=== PATIENT | female | born 1945 | race Caucasian/White ===

== ENCOUNTER 2021-03-11 13:05 | Emergency (ER) | payer MEDICARE, BC ==
[~2021-03-11] VITALS: Ht 162.6 cm; Wt 70.3 kg
--- NOTE | 2021-03-11 13:27 | NUR ---
DR DESAI AT THE BEDSIDE
--- NOTE | 2021-03-11 13:30 | NUR ---
BIBA RA99 GLF-Pain on Left Leg. The pain level is 8/10. No deformity noted. Will continue to monitor the patient.
--- NOTE | 2021-03-11 13:49 | NUR ---
x-ray tech at the bedside
--- NOTE | 2021-03-11 14:15 | NUR ---
CALLED [facility] [phone] THEY ARE AT [facility] AND WILL HAVE NO BEDS AVAILABLE IN THE FORSEEABLE FUTURE. [facility] HAVE 960 BEDS CAPACITY IS 885.
--- NOTE | 2021-03-11 14:32 | NUR ---
CALLED DR. MARIE [phone] WILL TEXT TO CALL US BACK.
--- NOTE | 2021-03-11 14:35 | NUR ---
x-ray tech at the bedside for chest x-ray
--- NOTE | 2021-03-11 14:39 | NUR ---
AT THE BEDSIDE
--- NOTE | 2021-03-11 14:59 | NUR ---
CALLED DR. LIDIA SCHMIDT [phone] SPOKE WITH HAIDER SCHMIDT IS SEEING PATIENTS PRATIBHA.
[2021-03-11 15:54] LABS: CALCIUM, SERUM 8.9 mg/dL (8.5-10.1); CREATININE 1.1 mg/dL (0.6-1.3); POTASSIUM 3.6 mmol/L (3.5-5.1)
--- NOTE | 2021-03-11 16:00 | NUR ---
Per lab unable to do CBC due to blood got clotted. The patient is made aware/explained that there is need for another blood draw (for CBC), however, the patient refused. The patient educated, given risks and benefits, however, the patient refused. Addendum: 03/11/21 at [address] Godwin made aware
--- NOTE | 2021-03-11 16:43 | NUR ---
CALLED [facility] [phone] EZ FOR PT GOING TO [facility] IN [place] UNDER [address] GILLIAN SULLIVAN FAXED CLINICALS TO [phone]
--- NOTE | 2021-03-11 17:57 | NUR ---
[place] ([facility]) [phone] phone #[phone]
--- NOTE | 2021-03-11 19:12 | NUR ---
RECEIVED A CALL FROM YESENIA FROM [facility] THAT PT IS NOT ACCEPTED. CASE DECLINED.
--- NOTE | 2021-03-11 19:14 | NUR ---
REPORT GIVEN TO NURSE LOVE FOR ABAD
--- NOTE | 2021-03-11 19:30 | NUR ---
PT C/O HEADACHE, DR PEREYRA NOTIFIED, RECEIVED VERBAL ORDER FOR TYLENOL 1000MG.
[2021-03-11] MEDS ORDERED: ACETAMINOPHEN ES 500 MG TABLET ONE (19:35)
--- NOTE | 2021-03-11 19:46 | NUR ---
CALLED [facility] TRANSFER CENTER NO BEDS AVAILABLE AT THIS TIME PER SURESH [phone]
[2021-03-11] MEDS ORDERED: ACETAMINOPHEN ES 500 MG TABLET PO ONE (20:00)
--- NOTE | 2021-03-11 20:49 | NUR ---
JIA ([facility]) - [phone] - CELL
--- NOTE | 2021-03-11 21:47 | NUR ---
Gallito schumacher in [facility] - 03/11/21 at 2148 by ARIANA spoke to minet from [facility], was informed there are no beds overnight until karla
--- NOTE | 2021-03-11 21:48 | NUR ---
SPOKE TO JAVON FROM [facility], WAS INFORMED THEY HAD NO BEDS AVAILABLE FOR TRANSFER FOR TONIGHT.
--- NOTE | 2021-03-11 21:55 | NUR ---
JAVON FROM [facility] ADMITTING NOTIFIED NOT TO ADMIT PT TO [facility]; AWAITING BED TO [facility]. CHARGE NURSE AWARE
--- NOTE | 2021-03-11 22:15 | NUR ---
DR BUSH AT BEDSIDE, ADVISED PT HE SPOKE WITH MD FROM [facility]: BED IS AVAILABLE AND WILL TAKE PATIENT TONIGHT. ETA UNKNOWN.
--- NOTE | 2021-03-11 22:16 | NUR ---
COVID ANTIGEN SWAB COLLECTED AND SENT TO LAB
--- NOTE | 2021-03-11 22:30 | NUR ---
PT REFUSED BLOOD DRAW ON THIRD ATTEMPT. EXPLAINED IMPORTANCE OF DIAGNOSTIC LABS. PT STILL REFUSED. MADE AWARE
--- NOTE | 2021-03-11 22:31 | NUR ---
[facility] ETA 40-45 MIN FOR TRANSPORT
--- NOTE | 2021-03-11 23:03 | NUR ---
REPORT GIVEN TO FERN AT [facility] AT [phone]
--- NOTE | 2021-03-11 23:05 | NUR ---
PT TRANSFERRED TO [facility] IN A GURNEY/AMBULANCE ACCOMPANIED BY 2 EMT, IN STABLE CONDITION.
[2021-03-12 00:43] VITALS: BP 128/78
== END 2021-03-11 23:05 | disposition short-term general hospital (02) ==
LOC: ER 13:08
DX: S72.002A Fracture of unspecified part of neck of left femur, initial encounter for closed fracture (principal); W01.0XXA Fall on same level from slipping, tripping and stumbling without subsequent striking against object, initial encounter; Y92.099 Unspecified place in other non-institutional residence as the place of occurrence of the external cause; K21.9 Gastro-esophageal reflux disease without esophagitis; Z88.6 Allergy status to analgesic agent; Z88.0 Allergy status to penicillin; Z88.2 Allergy status to sulfonamides; Z90.710 Acquired absence of both cervix and uterus
CPT/HCPCS: 36415; 71045-TC; 72170-TC; 73502; 80048-TC; C9803